=== PATIENT | male | born 1985 | race African-American/Black ===

== ENCOUNTER 2020-08-10 06:13 | Emergency (ER) | payer SELFPAY ==
[~2020-08-10] VITALS: Ht 185.4 cm; Wt 75.0 kg
[2020-08-10 06:18] VITALS: BP 112/62
== END 2020-08-10 08:36 | disposition home or self-care (01) ==
LOC: ER 06:13
DX: S60.455A Superficial foreign body of left ring finger, initial encounter (principal); X58.XXXA Exposure to other specified factors, initial encounter; Y93.89 Activity, other specified; Y92.89 Other specified places as the place of occurrence of the external cause; Y99.8 Other external cause status
CPT/HCPCS: 73140; 99284